=== PATIENT | female | born 1980 | race Caucasian/White ===

== ENCOUNTER 2021-08-20 18:48 | Emergency (ER) | payer SELFPAY ==
[~2021-08-20] VITALS: Ht 175.3 cm; Wt 49.9 kg
[~2021-08-20 18:48] MED LIST: ARMOUR THYROID90 MG PO
[2021-08-20] MEDS ORDERED: ONDANSETRON HCL INJ 2MG/ML 2ML 2 MG/ML VIAL IV STA (19:40)
[2021-08-20] MEDS ORDERED: SODIUM CHLORIDE 0.9% 1000ML 1,000 ML IV ONE (19:45)
[2021-08-20 19:48] LABS: BASOPHILS % 0.2 % (0.0-1.0); EOSINOPHILS # (AUTO) 0.2 (0.0-0.4); EOSINOPHILS % 3.3 % (0.0-6.0); HEMATOCRIT 31.8 % (34.2-44.1); HEMOGLOBIN 9.6 g/dL (12.0-16.0); LYMPHOCYTES # (AUTO) 2.7 (1.0-3.2); LYMPHOCYTES % 41.9 % (18.0-39.1); MEAN CORPUSCULAR HEMOGLOBIN 23.8 pg (28-32); MEAN CORPUSCULAR HGB CONC 30.2 g/dL (31-35); MEAN CORPUSCULAR VOLUME 78.7 fL (81-99); MONOCYTES # (AUTO) 0.7 (0.2-0.8); MONOCYTES % 11.2 % (4.4-11.3); NEUTROPHILS # (AUTO) 2.8 (2.1-6.9); NEUTROPHILS % 43.2 % (38.7-80.0); PLATELET COUNT 378 x10e3/uL (140-360); RED BLOOD COUNT 4.04 x10e6/uL (3.6-5.1); RED CELL DISTRIBUTION WIDTH 17.1 % (11.7-14.4)
[2021-08-20] MEDS ORDERED: SODIUM CHLORIDE 0.9% 1000ML 1,000 ML ONE (19:55)
[2021-08-20 20:01] LABS: ALBUMIN 3.7 g/dL (3.5-5.0); ALBUMIN/GLOBULIN RATIO 1.1 (0.8-2.0); ANION GAP 12.3 mmol/L (8-16); CALCIUM 10.9 mg/dL (8.4-10.2); CREATININE, SERUM 0.68 mg/dL (0.57-1.11); POTASSIUM 3.3 mmol/L (3.5-5.1)
[2021-08-20 20:05] LABS: AMYLASE 50 U/L (25-125); LIPASE 23 U/L (8-78)
[2021-08-20 20:29] LABS: AMPHETAMINES SCREEN,URINE NEGATIVE (NEGATIVE); BENZODIAZEPINES SCREEN,URINE NEGATIVE (NEGATIVE); CLARITY,URINE SL CLOUDY (CLEAR); COLOR,URINE YELLOW (YELLOW); KETONES,URINE TRACE (NEGATIVE); LEUKOCYTE ESTERASE ,URINE NEGATIVE (NEGATIVE); NITRITE,URINE NEGATIVE (NEGATIVE); PHENCYCLIDINE SCREEN,URINE NEGATIVE (NEGATIVE); PROTEIN,URINE DIPSTICK NEGATIVE (NEGATIVE); URINE UROBILINOGEN 0.2 mg/dL (0.2 - 1)
[2021-08-20 20:40] LABS: BACTERIA,URINE MODERATE /HPF; EPITHELIAL CELLS,URINE FEW /LPF; MUCUS,URINE MODERATE (RARE)
[2021-08-20] MEDS ORDERED: IOPAMIDOL 370 MG/ML 100 ML INFUS..BTL INJ ONE (20:54)
[2021-08-20 22:29] VITALS: BP 123/87
== END 2021-08-20 22:32 | disposition home or self-care (01) ==
LOC: ER 19:38
DX: R10.13 Epigastric pain (principal); D25.9 Leiomyoma of uterus, unspecified; K76.9 Liver disease, unspecified
CPT/HCPCS: 36415; 74177; 80053; 80307; 81001; 81025; 82150; 83690; 85025; 99284; C9113; J2405; J7030; Q9967

== ENCOUNTER 2022-04-25 17:07 | Emergency (ER) | payer MEDICARE ==
[~2022-04-25] VITALS: Ht 175.3 cm; Wt 49.9 kg
[2022-04-25] MEDS ORDERED: ONDANSETRON HCL INJ 2MG/ML 2ML 2 MG/ML VIAL IV STA (17:46)
[2022-04-25] MEDS ORDERED: SODIUM CHLORIDE 0.9% 1000ML 1,000 ML IV ONE (18:00)
[2022-04-25] MEDS ORDERED: DEXAMETHASONE 10MG/ML PF INJ IV ONE (18:00)
[2022-04-25] MEDS ORDERED: DIPHENHYDRAMINE HCL 25 MG CAP PO ONE (18:00)
[2022-04-25 18:21] LABS: BASOPHILS % 0.6 % (0.0-1.0); EOSINOPHILS # (AUTO) 0.2 (0.0-0.4); EOSINOPHILS % 2.7 % (0.0-6.0); HEMATOCRIT 30.7 % (34.2-44.1); HEMOGLOBIN 8.3 g/dL (12.0-16.0); LYMPHOCYTES # (AUTO) 2.4 (1.0-3.2); LYMPHOCYTES % 36.1 % (18.0-39.1); MEAN CORPUSCULAR HEMOGLOBIN 20.1 pg (28-32); MEAN CORPUSCULAR VOLUME 74.3 fL (81-99); MONOCYTES # (AUTO) 0.7 (0.2-0.8); MONOCYTES % 10.2 % (4.4-11.3); NEUTROPHILS # (AUTO) 3.4 (2.1-6.9); NEUTROPHILS % 50.1 % (38.7-80.0); PLATELET COUNT 330 x10e3/uL (140-360); RED BLOOD COUNT 4.13 x10e6/uL (3.6-5.1); RED CELL DISTRIBUTION WIDTH 18.1 % (11.7-14.4)
[2022-04-25 18:32] LABS: ALBUMIN/GLOBULIN RATIO 1.3 (0.8-2.0); ANION GAP 10.4 mmol/L (8-16); CALCIUM 8.7 mg/dL (8.4-10.2); CREATININE, SERUM 0.72 mg/dL (0.57-1.11); POTASSIUM 3.4 mmol/L (3.5-5.1)
[2022-04-25] MEDS ORDERED: DEXAMETHASONE SOD PHOS 10 MG/1 ML VIAL ONE (18:49)
[2022-04-25] MEDS ORDERED: PROMETHAZINE HC25 M1 PO (19:50)
[2022-04-25] MEDS ORDERED: AMITRIPTYLINE HCL 10 MG TAB PO ONE (20:00)
[2022-04-25] MEDS ORDERED: AMITRIPTYLINE HCL 25 MG TAB PO ONE (20:00)
[2022-04-25 20:22] VITALS: BP 119/62
== END 2022-04-25 20:22 | disposition home or self-care (01) ==
LOC: ER 17:18
DX: R51.9 Headache, unspecified (principal); H11.32 Conjunctival hemorrhage, left eye; D64.9 Anemia, unspecified; E03.9 Hypothyroidism, unspecified
CPT/HCPCS: 36415; 70450; 80053; 85025; 93005; 99284; J1100; J2405; J7030

== ENCOUNTER 2024-05-18 11:06 | Inpatient (IN) | payer MEDICARE, OTHER ==
[~2024-05-18] VITALS: Ht 170.2 cm; Wt 57.6 kg
[~2024-05-18 11:06] MED LIST changes: +PROMETHAZINE HC25 M1 PO
[2024-05-18 11:11] VITALS: TEMP 98.7
[2024-05-18] MEDS ORDERED: Morphine 4mg INJECTION 4 MG/ML INJ IV STA (11:13)
[2024-05-18] MEDS: SODIUM CHLORIDE 0.9% 1000ML 1,000 ML IV STA (12:01)
[2024-05-18] MEDS: ONDANSETRON HCL INJ 2MG/ML 2ML 2 MG/ML VIAL IV STA (12:01)
[2024-05-18 12:20] LABS: BASOPHILS % 0.4 % (0.0-1.0); EOSINOPHILS # (AUTO) 0.2 (0.0-0.4); EOSINOPHILS % 1.6 % (0.0-6.0); HEMATOCRIT 38.2 % (34.2-44.1); HEMOGLOBIN 11.4 g/dL (12.0-16.0); LYMPHOCYTES # (AUTO) 1.3 (1.0-3.2); LYMPHOCYTES % 13.2 % (18.0-39.1); MEAN CORPUSCULAR HEMOGLOBIN 21.3 pg (28-32); MEAN CORPUSCULAR HGB CONC 29.8 g/dL (31-35); MEAN CORPUSCULAR VOLUME 71.3 fL (81-99); MONOCYTES # (AUTO) 0.7 (0.2-0.8); MONOCYTES % 6.5 % (4.4-11.3); PLATELET COUNT 406 x10e3/uL (140-360); RED BLOOD COUNT 5.36 x10e6/uL (3.6-5.1); RED CELL DISTRIBUTION WIDTH 25.5 % (11.7-14.4); WHITE BLOOD COUNT 10.18 x10e3/uL (4.8-10.8)
[2024-05-18 12:28] LABS: CLARITY,URINE CLEAR (CLEAR); COLOR,URINE YELLOW (YELLOW); PREGNANCY TEST, URINE NEGATIVE (NEGATIVE)
[2024-05-18 12:29] LABS: BILIRUBIN,URINE NEGATIVE (NEGATIVE); GLUCOSE, URINE NEGATIVE (NEGATIVE); KETONES,URINE NEGATIVE (NEGATIVE); LEUKOCYTE ESTERASE ,URINE NEGATIVE (NEGATIVE); NITRITE,URINE NEGATIVE (NEGATIVE); PH,URINE 6 (5 - 7); PROTEIN,URINE DIPSTICK 1+ (NEGATIVE); URINE UROBILINOGEN 0.2 mg/dL (0.2 - 1)
[2024-05-18 12:40] LABS: BACTERIA,URINE FEW /HPF; EPITHELIAL CELLS,URINE FEW /LPF; RBC,URINE 0-5 /HPF (0-5); WBC,URINE (MAN) 0-5 /HPF (0-5)
[2024-05-18 12:44] LABS: ALBUMIN 4.3 g/dL (3.5-5.0); ALBUMIN/GLOBULIN RATIO 1.3 (0.8-2.0); ANION GAP 12.7 mmol/L (8-16); BILIRUBIN,TOTAL 0.4 mg/dL (0.2-1.2); CALCIUM 8.9 mg/dL (8.4-10.2); CREATININE, SERUM 0.8 mg/dL (0.57-1.11); POTASSIUM 3.7 mmol/L (3.5-5.1); TOTAL PROTEIN 7.6 g/dL (6.5-8.1)
[2024-05-18] MEDS: KETOROLAC TROMETHAMINE 60 MG/2 ML VIAL IM STA (13:23)
[2024-05-18] MEDS ORDERED: IOPAMIDOL 370 MG/ML 100 ML INFUS..BTL INJ ONE (13:47)
[2024-05-18] MEDS: SODIUM CHLORIDE 0.9% 1000ML 1,000 ML IV SCH (16:00)
[2024-05-18] MEDS: Morphine 4mg INJECTION 4 MG/ML INJ IV STA (16:00)
[2024-05-18] MEDS: ONDANSETRON HCL INJ 2MG/ML 2ML 2 MG/ML VIAL IV PRN (16:01)
[2024-05-18 16:05] VITALS: PULSE 79; RESP 18
[2024-05-18 19:20] VITALS: BP 103/68; PULSE 67; RESP 18; TEMP 97.5; O2SAT 100
[2024-05-18] MEDS: Morphine 4mg INJECTION 4 MG/ML INJ IV PRN (20:44)
[2024-05-18 22:00] VITALS: BP 112/80; PULSE 79; RESP 18; TEMP 98; O2SAT 100
[2024-05-18 22:31] VITALS: BP 112/80; PULSE 68; RESP 18; TEMP 98; O2SAT 100
[2024-05-19] VITALS (7 sets, daily range): BP systolic 98–122; BP diastolic 63–79; PULSE 67–94; RESP 16–20; TEMP 97.2–98.2; O2SAT 98–100
[2024-05-19] MEDS ORDERED: OMEPRAZOLE20 MG PO (02:20)
[2024-05-19] MEDS ORDERED: AMITRIPTYLINE H10 MG PO (02:20)
[2024-05-19 06:39] LABS: BASOPHILS % 0.6 % (0.0-1.0); EOSINOPHILS # (AUTO) 0.3 (0.0-0.4); EOSINOPHILS % 5.4 % (0.0-6.0); HEMATOCRIT 29.4 % (34.2-44.1); HEMOGLOBIN 8.7 g/dL (12.0-16.0); LYMPHOCYTES # (AUTO) 2.6 (1.0-3.2); LYMPHOCYTES % 40.8 % (18.0-39.1); MEAN CORPUSCULAR HEMOGLOBIN 21.3 pg (28-32); MEAN CORPUSCULAR HGB CONC 29.6 g/dL (31-35); MEAN CORPUSCULAR VOLUME 72.1 fL (81-99); MONOCYTES # (AUTO) 0.6 (0.2-0.8); MONOCYTES % 9.9 % (4.4-11.3); NEUTROPHILS # (AUTO) 2.7 (2.1-6.9); NEUTROPHILS % 43.1 % (38.7-80.0); PLATELET COUNT 292 x10e3/uL (140-360); RED BLOOD COUNT 4.08 x10e6/uL (3.6-5.1); RED CELL DISTRIBUTION WIDTH 25.3 % (11.7-14.4); WHITE BLOOD COUNT 6.35 x10e3/uL (4.8-10.8)
[2024-05-19 07:16] LABS: ALBUMIN/GLOBULIN RATIO 1.3 (0.8-2.0); ANION GAP 9.4 mmol/L (8-16); BILIRUBIN,TOTAL 0.6 mg/dL (0.2-1.2); CALCIUM 7.7 mg/dL (8.4-10.2); CREATININE, SERUM 0.66 mg/dL (0.57-1.11); TOTAL PROTEIN 5.3 g/dL (6.5-8.1)
[2024-05-19 07:41] LABS: POTASSIUM 3.4 mmol/L (3.5-5.1)
[2024-05-19] MEDS ORDERED: LIDOCAINE HCL 2% LOCAL 20 ML VIAL ONE (08:02)
[2024-05-19] MEDS ORDERED: FENTANYL CITRATE/PF 100MCG/2 ML INJ ONE (08:02)
[2024-05-19] MEDS ORDERED: SEVOFLURANE INHAL SOLN 250 ML PEN BTL ONE (08:03)
[2024-05-19] MEDS ORDERED: ACETAMINOPHEN 1000 MG/100 ML 100 ML IV ONE (08:03)
[2024-05-19] MEDS ORDERED: PROPOFOL IV EMULSION 10 MG/ML 20 ML VIAL ONE (08:56)
[2024-05-19] MEDS ORDERED: EPHEDRINE SULFATE INJ 50 MG/ML VIAL ONE (08:56)
[2024-05-19] MEDS ORDERED: ONDANSETRON HCL INJ 2MG/ML 2ML 2 MG/ML VIAL ONE (08:56)
[2024-05-19] MEDS ORDERED: DEXAMETHASONE SOD PHOS INJ 4 MG/ML SDV ONE (08:56)
[2024-05-19] MEDS ORDERED: FAMOTIDINE 20 MG/2 ML VIAL IV ONE (08:56)
[2024-05-19] MEDS ORDERED: PHENAZOPYRIDINE HCL 100 MG TAB PO PRN (09:30)
[2024-05-19] MEDS: PHENAZOPYRIDINE HCL 100 MG TAB ONE (09:35)
[2024-05-19] MEDS: SOLIFENACIN SUCCINATE 5 MG TAB PO SCH (10:33)
[2024-05-19 11:07] LABS: EOSINOPHILS % (MANUAL) 3 % (0-7); LYMPHOCYTES % (MANUAL) 40 % (19-48); MONOCYTES % (MANUAL) 4 % (3.4-9.0); NEUTROPHILS % (MANUAL) 53 % (40-74); PLATELET ESTIMATE ADEQUATE; PLATELET MORPHOLOGY COMMENT NORMAL
[2024-05-19 11:08] LABS: ELLIPTOCYTE, RBC SLIGHT; RBC MORPHOLOGY COMMENT NORMAL
[2024-05-19] MEDS: ASPIRIN 81 MG CHEW TAB PO ONE (12:21)
[2024-05-19 13:17] LABS: CREATINE KINASE 32 IU/L (29-168)
[2024-05-19 13:26] LABS: TROPONIN I < 0.001 ng/mL (0-0.300)
[2024-05-19] MEDS: NAPROXEN 250 MG TAB PO PRN (17:40)
== END 2024-05-19 19:58 | disposition home or self-care (01) | DRG 660 ==
LOC: ER 11:10 → ERHOLD 15:48 → MED/SURG3 18:33
PROVIDERS: ADMIT Internal Medicine; ATTEND Internal Medicine
PROC: BT141ZZ Fluoroscopy of Kidneys, Ureters and Bladder using Low Osmolar Contrast (ICD-10-PCS; 2024-05-19)
PROC: 0UJH7ZZ Inspection of Vagina and Cul-de-sac, Via Natural or Artificial Opening (ICD-10-PCS; 2024-05-19)
PROC: 0T788DZ Dilation of Bilateral Ureters with Intraluminal Device, Via Natural or Artificial Opening Endoscopic (ICD-10-PCS; principal; 2024-05-19 08:37)
DX: N13.1 Hydronephrosis with ureteral stricture, not elsewhere classified (principal); D62 Acute posthemorrhagic anemia; R33.9 Retention of urine, unspecified; D25.9 Leiomyoma of uterus, unspecified; N81.10 Cystocele, unspecified; N32.89 Other specified disorders of bladder; N28.1 Cyst of kidney, acquired; E83.51 Hypocalcemia; R80.9 Proteinuria, unspecified; E03.9 Hypothyroidism, unspecified; Z79.899 Other long term (current) drug therapy
CPT/HCPCS: 36415; 74177; 74420; 80053; 81001; 81025; 82550; 83690; 84484; 85025; 87086; 93005; 99284; C1758; C1769; C2617; J1100; J1885; J2003; J2270; J2405; J2543; J7030; Q9967

== ENCOUNTER 2024-07-09 17:43 | Inpatient (IN) | payer OTHER ==
[~2024-07-09] VITALS: Ht 175.3 cm; Wt 54.4 kg
[~2024-07-09 17:43] MED LIST changes: +AMITRIPTYLINE H10 MG PO; +OMEPRAZOLE20 MG PO
[2024-07-09 18:00] VITALS: TEMP 97.7
[2024-07-09] MEDS: ONDANSETRON HCL INJ 2MG/ML 2ML 2 MG/ML VIAL IV STA (18:22)
[2024-07-09] MEDS: SODIUM CHLORIDE 0.9% 1000ML 1,000 ML IV ONE ×2 (18:22→22:50)
[2024-07-09 19:04] LABS: BASOPHILS % 0.2 % (0.0-1.0); EOSINOPHILS % 0.1 % (0.0-6.0); HEMATOCRIT 35.6 % (34.2-44.1); HEMOGLOBIN 11.5 g/dL (12.0-16.0); LYMPHOCYTES # (AUTO) 0.9 (1.0-3.2); LYMPHOCYTES % 7.4 % (18.0-39.1); MEAN CORPUSCULAR HGB CONC 32.3 g/dL (31-35); MEAN CORPUSCULAR VOLUME 80.4 fL (81-99); MONOCYTES # (AUTO) 0.7 (0.2-0.8); MONOCYTES % 5.7 % (4.4-11.3); NEUTROPHILS # (AUTO) 10.9 (2.1-6.9); PLATELET COUNT 320 x10e3/uL (140-360); RED BLOOD COUNT 4.43 x10e6/uL (3.6-5.1); RED CELL DISTRIBUTION WIDTH 22.7 % (11.7-14.4); WHITE BLOOD COUNT 12.62 x10e3/uL (4.8-10.8)
[2024-07-09 19:17] LABS: LIPASE 22 U/L (8-78)
[2024-07-09 19:19] LABS: ALBUMIN 3.5 g/dL (3.5-5.0); ANION GAP 14.5 mmol/L (8-16); BILIRUBIN,TOTAL 0.5 mg/dL (0.2-1.2); CALCIUM 8.5 mg/dL (8.4-10.2); CREATININE, SERUM 0.63 mg/dL (0.57-1.11); POTASSIUM 3.5 mmol/L (3.5-5.1); TOTAL PROTEIN 6.9 g/dL (6.5-8.1)
[2024-07-09] MEDS ORDERED: IOPAMIDOL 370 MG/ML 100 ML INFUS..BTL INJ ONE (19:38)
[2024-07-09] MEDS: FENTANYL CITRATE/PF 100MCG/2 ML INJ IV ONE (19:49)
[2024-07-09 22:05] LABS: BILIRUBIN,URINE NEGATIVE (NEGATIVE); CLARITY,URINE CLOUDY (CLEAR); COLOR,URINE YELLOW (YELLOW); GLUCOSE, URINE NEGATIVE (NEGATIVE); KETONES,URINE NEGATIVE (NEGATIVE); LEUKOCYTE ESTERASE ,URINE 1+ (NEGATIVE); NITRITE,URINE NEGATIVE (NEGATIVE); PH,URINE 7 (5 - 7); PROTEIN,URINE DIPSTICK NEGATIVE (NEGATIVE); URINE UROBILINOGEN 0.2 mg/dL (0.2 - 1)
[2024-07-09 22:18] LABS: BACTERIA,URINE MODERATE /HPF; EPITHELIAL CELLS,URINE MANY /LPF; TRANSITIONAL EPI CELLS,URINE MODERATE; WBC,URINE (MAN) >50 /HPF (0-5); YEAST,URINE FEW
[2024-07-09] MEDS: HALOPERIDOL LACTATE 5 MG/ML VIAL IV ONE (22:49)
[2024-07-09] MEDS: ACETAMINOPHEN 325 MG TAB PO ONE (22:50)
[2024-07-09 23:40] VITALS: PULSE 83; RESP 16
[2024-07-10] VITALS (11 sets, daily range): BP systolic 94–120; BP diastolic 51–85; PULSE 59–91; RESP 17–21; TEMP 97.4–98.5; O2SAT 97–100
[2024-07-10] MEDS: SODIUM CHLORIDE 0.9% 1000ML 1,000 ML IV SCH (01:23)
[2024-07-10 07:58] LABS: BASOPHILS % 0.7 % (0.0-1.0); EOSINOPHILS # (AUTO) 0.1 (0.0-0.4); EOSINOPHILS % 2.3 % (0.0-6.0); HEMATOCRIT 31.3 % (34.2-44.1); HEMOGLOBIN 10.3 g/dL (12.0-16.0); LYMPHOCYTES # (AUTO) 1.8 (1.0-3.2); MEAN CORPUSCULAR HEMOGLOBIN 26.7 pg (28-32); MEAN CORPUSCULAR HGB CONC 32.9 g/dL (31-35); MEAN CORPUSCULAR VOLUME 81.1 fL (81-99); MONOCYTES # (AUTO) 0.6 (0.2-0.8); MONOCYTES % 11.4 % (4.4-11.3); NEUTROPHILS % 53.2 % (38.7-80.0); PLATELET COUNT 252 x10e3/uL (140-360); RED BLOOD COUNT 3.86 x10e6/uL (3.6-5.1); RED CELL DISTRIBUTION WIDTH 22.9 % (11.7-14.4); WHITE BLOOD COUNT 5.59 x10e3/uL (4.8-10.8)
[2024-07-10 08:38] LABS: CHOL/HDL RATIO 5.8 (3.0-3.6); MAGNESIUM 1.9 MG/DL (1.3-2.1); PHOSPHORUS 3.2 MG/DL (2.3-4.7)
[2024-07-10 08:50] LABS: FREE T4 (FREE THYROXINE) 0.59 ng/dL (0.8-1.8); THYROID STIMULATING HORMONE 3.683 uIU/mL (0.350-4.940)
[2024-07-10 08:58] LABS: ALBUMIN 2.7 g/dL (3.5-5.0); ANION GAP 12.4 mmol/L (8-16); BILIRUBIN,TOTAL 0.3 mg/dL (0.2-1.2); CALCIUM 7.7 mg/dL (8.4-10.2); CREATININE, SERUM 0.59 mg/dL (0.57-1.11); TOTAL PROTEIN 5.4 g/dL (6.5-8.1)
[2024-07-10 09:08] LABS: POTASSIUM 3.4 mmol/L (3.5-5.1)
[2024-07-10] MEDS: ACETAMINOPHEN 325 MG TAB PO PRN (11:21)
[2024-07-10] MEDS: Morphine 4mg INJECTION 4 MG/ML INJ IV PRN (15:04)
[2024-07-10] MEDS: ONDANSETRON HCL INJ 2MG/ML 2ML 2 MG/ML VIAL IV PRN (15:05)
[2024-07-10] MEDS ORDERED: FAMOTIDINE 20 MG TAB PO PRN (15:45)
[2024-07-10] MEDS ORDERED: ACETAMINOPHEN 325 MG TAB PO PRN (15:45)
[2024-07-10 16:33] LABS: FERRITIN 105.05 ng/mL (4.63-204.00)
[2024-07-10] MEDS ORDERED: MELATONIN 5 MG TABLET PO PRN (21:00)
[2024-07-11] VITALS (9 sets, daily range): BP systolic 101–120; BP diastolic 66–86; PULSE 54–71; RESP 16–19; TEMP 97.7–98.4; O2SAT 98–100
[2024-07-11 05:04] LABS: BASOPHILS # (AUTO) 0.1 (0.0-0.1); BASOPHILS % 0.9 % (0.0-1.0); EOSINOPHILS # (AUTO) 0.4 (0.0-0.4); EOSINOPHILS % 6.5 % (0.0-6.0); HEMATOCRIT 30.7 % (34.2-44.1); HEMOGLOBIN 9.9 g/dL (12.0-16.0); LYMPHOCYTES # (AUTO) 2.6 (1.0-3.2); LYMPHOCYTES % 47.4 % (18.0-39.1); MEAN CORPUSCULAR HEMOGLOBIN 26.2 pg (28-32); MEAN CORPUSCULAR HGB CONC 32.2 g/dL (31-35); MEAN CORPUSCULAR VOLUME 81.2 fL (81-99); MONOCYTES # (AUTO) 0.8 (0.2-0.8); NEUTROPHILS # (AUTO) 1.7 (2.1-6.9); PLATELET COUNT 259 x10e3/uL (140-360); RED BLOOD COUNT 3.78 x10e6/uL (3.6-5.1); RED CELL DISTRIBUTION WIDTH 22.6 % (11.7-14.4); WHITE BLOOD COUNT 5.42 x10e3/uL (4.8-10.8)
[2024-07-11 05:24] LABS: ALBUMIN 2.8 g/dL (3.5-5.0); ALBUMIN/GLOBULIN RATIO 1.1 (0.8-2.0); ANION GAP 10.2 mmol/L (8-16); BILIRUBIN,TOTAL 0.2 mg/dL (0.2-1.2); CALCIUM 7.6 mg/dL (8.4-10.2); CREATININE, SERUM 0.6 mg/dL (0.57-1.11); TOTAL PROTEIN 5.4 g/dL (6.5-8.1)
[2024-07-11 05:25] LABS: POTASSIUM 3.2 mmol/L (3.5-5.1)
[2024-07-11] MEDS: THYROID 60 MG TAB PO SCH (06:34)
[2024-07-11] MEDS: KETOROLAC TROMETHAMINE 30 MG/ML VIAL IM PRN (08:17)
[2024-07-12] VITALS (8 sets, daily range): BP systolic 98–122; BP diastolic 65–84; PULSE 52–102; RESP 17–19; TEMP 97.9–98.5; O2SAT 96–100
[2024-07-12 05:43] LABS: ANION GAP 12.3 mmol/L (8-16); CALCIUM 8.5 mg/dL (8.4-10.2); CREATININE, SERUM 0.63 mg/dL (0.57-1.11)
[2024-07-12 05:46] LABS: POTASSIUM 3.3 mmol/L (3.5-5.1)
[2024-07-12] MEDS: PANTOPRAZOLE SODIUM 20 MG TABLET.DR PO SCH (07:30)
[2024-07-13] VITALS (10 sets, daily range): BP systolic 90–109; BP diastolic 62–89; PULSE 55–85; RESP 16–20; TEMP 97.3–99; O2SAT 96–100
[2024-07-13 05:24] LABS: BASOPHILS # (AUTO) 0.1 (0.0-0.1); BASOPHILS % 0.6 % (0.0-1.0); EOSINOPHILS # (AUTO) 0.4 (0.0-0.4); EOSINOPHILS % 4.4 % (0.0-6.0); HEMATOCRIT 34.1 % (34.2-44.1); HEMOGLOBIN 10.9 g/dL (12.0-16.0); LYMPHOCYTES # (AUTO) 3.3 (1.0-3.2); LYMPHOCYTES % 37.9 % (18.0-39.1); MEAN CORPUSCULAR HEMOGLOBIN 26.5 pg (28-32); MONOCYTES # (AUTO) 0.6 (0.2-0.8); MONOCYTES % 6.7 % (4.4-11.3); NEUTROPHILS # (AUTO) 4.4 (2.1-6.9); NEUTROPHILS % 50.1 % (38.7-80.0); PLATELET COUNT 327 x10e3/uL (140-360); RED BLOOD COUNT 4.11 x10e6/uL (3.6-5.1); WHITE BLOOD COUNT 8.71 x10e3/uL (4.8-10.8)
[2024-07-13 06:02] LABS: ANION GAP 12.4 mmol/L (8-16); CALCIUM 8.3 mg/dL (8.4-10.2); CREATININE, SERUM 0.7 mg/dL (0.57-1.11)
[2024-07-13 06:06] LABS: POTASSIUM 3.4 mmol/L (3.5-5.1)
[2024-07-13 07:58] LABS: ANISOCYTOSIS MODERATE; HYPOCHROMASIA SLIGHT; PLATELET ESTIMATE ADEQUATE; PLATELET MORPHOLOGY COMMENT NORMAL; RBC MORPHOLOGY COMMENT ABNORMAL
[2024-07-13 07:59] LABS: MICROCYTOSIS SLIGHT; OVALOCYTES FEW
[2024-07-13] MEDS ORDERED: LIDOCAINE HCL 2% LOCAL INJ 5 ML SDV VIAL INJ ONE (10:31)
[2024-07-13] MEDS ORDERED: PROPOFOL IV EMULSION 10 MG/ML 20 ML VIAL ONE (10:31)
[2024-07-13] MEDS: SODIUM CHLORIDE 0.45% 1,000 ML IV SCH (10:40)
[2024-07-13] MEDS ORDERED: FENTANYL CITRATE/PF 100MCG/2 ML INJ ONE (10:45)
[2024-07-13] MEDS ORDERED: SEVOFLURANE INHAL SOLN 250 ML PEN BTL ONE (10:45)
[2024-07-13] MEDS ORDERED: ACETAMINOPHEN 1000 MG/100 ML 100 ML IV ONE (10:53)
[2024-07-13] MEDS ORDERED: DEXAMETHASONE SOD PHOS INJ 4 MG/ML SDV ONE (10:53)
[2024-07-13] MEDS ORDERED: ONDANSETRON HCL INJ 2MG/ML 2ML 2 MG/ML VIAL ONE (10:53)
[2024-07-13] MEDS ORDERED: EPHEDRINE SULFATE INJ 50 MG/ML VIAL ONE (11:10)
[2024-07-14 03:09] VITALS: BP 102/66; PULSE 65; RESP 18; TEMP 97.8; O2SAT 100
[2024-07-14] MEDS: KETOROLAC TROMETHAMINE 30 MG/ML VIAL IV PRN (05:32)
[2024-07-14 07:53] VITALS: BP 101/66; PULSE 58; RESP 18; TEMP 98.1; O2SAT 100
[2024-07-14 08:27] VITALS: PULSE 60; RESP 16; O2SAT 100
[2024-07-14 10:58] VITALS: BP 101/66; PULSE 60; RESP 16; TEMP 98.1; O2SAT 100
[2024-07-14 12:01] VITALS: BP 97/64; PULSE 59; RESP 19; TEMP 98.2; O2SAT 96
[2024-07-14] MEDS ORDERED: ONDANSETRON HCL 4 MG ORAL DISINTEGRATING TAB PO PRN (12:30)
== END 2024-07-14 13:33 | disposition home or self-care (01) | DRG 699 ==
LOC: ER 18:09 → ERHOLD 23:05 → MED/SURG 07-10 00:10
PROVIDERS: ADMIT Internal Medicine; ATTEND Internal Medicine
PROC: 0TP98DZ Removal of Intraluminal Device from Ureter, Via Natural or Artificial Opening Endoscopic (ICD-10-PCS; 2024-07-13)
PROC: BT141ZZ Fluoroscopy of Kidneys, Ureters and Bladder using Low Osmolar Contrast (ICD-10-PCS; 2024-07-13)
PROC: 0UJH7ZZ Inspection of Vagina and Cul-de-sac, Via Natural or Artificial Opening (ICD-10-PCS; 2024-07-13)
PROC: 0TC18ZZ Extirpation of Matter from Left Kidney, Via Natural or Artificial Opening Endoscopic (ICD-10-PCS; principal; 2024-07-13 10:45)
PROC: 0TP98DZ Removal of Intraluminal Device from Ureter, Via Natural or Artificial Opening Endoscopic (ICD-10-PCS; 2024-07-13 10:45)
DX: T83.592A Infection and inflammatory reaction due to indwelling ureteral stent, initial encounter (principal); E87.1 Hypo-osmolality and hyponatremia; N39.0 Urinary tract infection, site not specified; Q61.02 Congenital multiple renal cysts; Z46.6 Encounter for fitting and adjustment of urinary device; B96.89 Other specified bacterial agents as the cause of diseases classified elsewhere; N81.2 Incomplete uterovaginal prolapse; D50.9 Iron deficiency anemia, unspecified; R31.29 Other microscopic hematuria; E83.51 Hypocalcemia; D25.9 Leiomyoma of uterus, unspecified; N83.202 Unspecified ovarian cyst, left side; E03.9 Hypothyroidism, unspecified; F17.290 Nicotine dependence, other tobacco product, uncomplicated; K21.9 Gastro-esophageal reflux disease without esophagitis; Z98.890 Other specified postprocedural states; Y83.1 Surgical operation with implant of artificial internal device as the cause of abnormal reaction of the patient, or of later complication, without mention of misadventure at the time of the procedure; Y92.009 Unspecified place in unspecified non-institutional (private) residence as the place of occurrence of the external cause
CPT/HCPCS: 36415; 74177; 74420; 80048; 80053; 80061; 81001; 82607; 82728; 82746; 83540; 83690; 83735; 84100; 84439; 84443; 84466; 84702; 85025; 85045; 87086; 88300; 94799; 99252; 99284; J0696; J1100; J1630; J1885; J2003; J2270; J2405; J7030; Q9967